=== PATIENT | female | born 1985 | race African-American/Black ===

== ENCOUNTER 2018-02-21 15:00 | Inpatient (IN) | payer OTHER ==
[2018-02-21 19:11] VITALS: BMI 21.3
--- NOTE | 2018-02-21 19:22 | HP ---
Admission ROS [facility] Allergies/Adverse Reactions: Allergies Allergy/AdvReac Type Severity Reaction Status Date / Time ibuprofen [From Motrin] Allergy Severe Itching Verified 02/21/18 20:02 tomato Allergy Severe Itching Verified 02/21/18 20:02 History of Present Illness: pt here requesting rehab for etoh use , reports self- referred to tx , previous use of ETOH until 5 d . ago , at the time drinking 2 pints /day , detox herself and decided to come to rehab . Currently not in out pt program . utox : neg for all on the 2nd utox, first + mtd , denies use , states went to hospital yesterday 2/2 LBP , was given morphine , tylenol and zofran . pmhx : asthma ( er visit , has inhaler ALbuterol ) pshx : nose frx psych : anxiety , depression , ptsd psych : prednisone , Prozac , klonopin i-stop negative - Ebola screening Have you traveled outside of the country in the last 21 days: No Have you had contact with anyone from an Ebola affected area: No Have you been sick,other than usual withdrawal symptoms: No Patient History - Patient Medical History Hx Anemia: Yes (NO CURRENT MED) Hx Asthma: Yes (MDI) Hx Chronic Obstructive Pulmonary Disease (COPD): No Hx Cardiac Disorders: No Hx Hypertension: No Hx Hypercholesterolemia: No HX Cerebrovascular Accident: No Hx Seizures: No Hx Diabetes: No Hx Gastrointestinal Disorders: No Hx Genitourinary Disorders: No Hx Sexually Transmitted Disorders: Yes (chlamydia) Hx Renal Disease (ESRD): No Hx Thyroid Disease: No Hx Human Immunodeficiency Virus (HIV): No (NEGATIVE HX) Hx Hepatitis C: No Hx Depression: Yes (NO CURRENT MED) Hx Suicide Attempt: No (DENIES) Hx Bipolar Disorder: No Hx Schizophrenia: No - Patient Surgical History Past Surgical History: Yes Hx Neurologic Surgery: No Hx Cataract Extraction: No Hx Cardiac Surgery: No Hx Lung Surgery: No Hx Breast Surgery: No Hx Breast Biopsy: No Hx Abdominal Surgery: No Hx Appendectomy: No Hx Cholecystectomy: No Hx Genitourinary Surgery: No Hx Section: No Hx Orthopedic Surgery: No Other Surgical History: fx, nose in 12/2015 Anesthesia Reaction: No - PPD History Date: 03/12/16 Results: TO BE DONE - Reproductive History Last Menstrual Period: 01/31/16 - Smoking Cessation Smoking history: Current every day smoker Have you smoked in the past 12 months: Yes Aproximately how many cigarettes per day: 10 Hx Chewing Tobacco Use: No Initiated information on smoking cessation: No - Substances Abused Alcohol Route: Oral Frequency: Daily Amount used: 1 pint vodka Age of first use: 19 Date of Last Use: 02/16/18 Family Disease History - Family Disease History Family Disease History: Diabetes: Grandparent (STOCH CA-), CA: Grandparent, Other: Father (HTN), Mother (LOW BP) Admission Physical Exam [facility] - Vital Signs Vital Signs: Vital Signs - 24 hr 02/21/18 19:09 Temperature 99.2 F Pulse Rate 94 H Respiratory 20 Rate Blood Pressure 134/91 - Physical General Appearance: Yes: Within Normal Limits, No Apparent Distress, Nourished, Appropriately Dressed, Other (lmp now) HEENTM: Yes: Within Normal Limits, EOMI, Hearing grossly Normal, Normal ENT Inspection, Normocephalic, Normal Voice, LINDA, Pharynx Normal, Other (reading glasses) Respiratory: Yes: Within Normal Limits, Chest Non-Tender, Lungs Clear, Normal Breath Sounds, No Respiratory Distress, No Accessory Muscle Use Neck: Yes: Within Normal Limits, No masses,lesions,Nodules, Trachea in good position Cardiology: Yes: Regular Rhythm, Regular Rate, Tachycardia Abdominal: Yes: Within Normal Limits, Normal Bowel Sounds, Non Tender, Flat, Soft Genitourinary: Yes: Within Normal Limits Back: Yes: Within Normal Limits, Normal Inspection Musculoskeletal: Yes: Within Normal Limits, full range of Motion, Gait Steady, Pelvis Stable Extremities: Yes: Within Normal Limits, Normal Capillary Refill, Normal Inspection, Normal Range of Motion, Non-Tender Neurological: Yes: Fully Oriented, Alert, Motor Strength 5/5, Normal Response, Depressed Affect Integumentary: Yes: Within Normal Limits, Normal Color, Dry, Warm - Diagnostic (1) Alcohol dependence Current Visit: Yes Status: Chronic Qualifiers: Substance use status: uncomplicated Qualified Code(s): F10.20 - Alcohol dependence, uncomplicated S Breath Alcohol Content Breath Alcohol Content: 0 Urine Pregancy Test - Result Urine Test Results: Negative- NO Line Present Urine Drug Screen - Results Drug Screen Negative: No Urine Drug Screen Results: MTD-Methadone
[2018-02-21] MEDS ORDERED: MAGNESIUM HYDROX 2400MG/30ML ORAL SUSPENSION 30 ML CUP PO PRN (19:34)
[2018-02-21] MEDS ORDERED: guaiFENesin/D-METHORPHAN HB 10 ML UNIT-DOSE CUPS PO PRN (19:34)
[2018-02-21] MEDS ORDERED: IBUPROFEN 400 MG TABLET (FP) PO PRN (19:34)
[2018-02-21] MEDS ORDERED: MAG HYDROX/AL HYDROX/SIMETH 30 ML UNIT-DOSE CUP PO PRN (19:34)
[2018-02-21] MEDS ORDERED: MENTHOL/PHENOL 1 EACH UD MM PRN (19:34)
[2018-02-21] MEDS ORDERED: P-EPHED 60MG/TRIPROLIDI 2.5MG TABLET PO PRN (19:34)
[2018-02-21] MEDS ORDERED: MAGNESIUM CITRATE 300 ML BOTTLE PO PRN (19:34)
[2018-02-21] MEDS ORDERED: LOPERAMIDE HCL 2 MG CAPSULE PO PRN (19:34)
[2018-02-21] MEDS ORDERED: ALBUTEROL SO4 0.083% IH SOL 2.5 MG/3 ML VIAL.NEB. NEB PRN (19:35)
[2018-02-21] MEDS ORDERED: MELATONIN 5 MG TABLETS PO PRN (22:00)
[2018-02-21] MEDS ORDERED: TUBERCULIN PPD 5 TU/0.1ML VIAL ID ONE (23:10)
[2018-02-21] MEDS: THIAMINE HCL 100 MG TABLET (FP) PO SCH (23:39)
[2018-02-22] MEDS: ALBUTEROL SO4 8 GM HFA INHALER IH PRN ×2 (07:21→14:24)
[2018-02-22] MEDS ORDERED: PT OWN MED DRAWER 7, Y5N ONE ×3 (08:40→14:23)
[2018-02-22] MEDS: PRENATAL VITAMINS W/ FOLIC ACID TABLET (FP) PO SCH (09:44)
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
[2018-02-22] MEDS: FLUoxetine HCL 20 MG CAPSULE (FP) PO SCH (11:47)
[2018-02-22] MEDS ORDERED: PNEUMOC 13-VAL CONJ-DIP CRM/PF 0.5 ML DISP.SYRIN IM ONE (12:00)
[2018-02-22] MEDS ORDERED: PNEUMOCOCCAL 23 VACCINE 0.5 ML VIAL IM ONE (12:00)
[2018-02-22] MEDS: hydrOXYzine PAMOATE 50 MG CAPSULE (FP) PO PRN ×2 (14:24→21:27)
[2018-02-22 14:47] LABS: HEMATOCRIT 35.2 % (32.4-45.2); MCH 35.5 pg (25.7-33.7); MEAN CELL VOLUME 104.5 fl (80-96); PLATELET COUNT 54 K/MM3 (134-434); RBC 3.37 M/mm3 (3.60-5.2); RDW 19.6 % (11.6-15.6); WHITE BLOOD COUNT 2.9 K/mm3 (4.0-10.0)
[2018-02-22 15:02] LABS: ALBUMIN 4.1 g/dl (3.4-5.0); ALK PHOS 135 U/L (45-117); ANION GAP 9 MMOL/L (8-16); BILIRUBIN,TOTAL 1.2 mg/dL (0.2-1); BLOOD UREA NITROGEN 3 mg/dL (7-18); CALCIUM 9.8 mg/dL (8.5-10.1); CHLORIDE 97 mmol/L (98-107); CO2 29 mmol/L (21-32); CREATININE 0.6 mg/dL (0.55-1.3); GLUCOSE,RANDOM 99 mg/dL (74-106); POTASSIUM 3.3 mmol/L (3.5-5.1); SGOT/AST 205 U/L (15-37); SGPT/ALT 67 U/L (13-61); SODIUM 135 mmol/L (136-145); TOT PROT 7.6 g/dl (6.4-8.2)
[2018-02-22] MEDS: MELATONIN 5 MG TABLETS PO PRN (21:26)
[2018-02-22] MEDS: THIAMINE HCL 100 MG TABLET (FP) PO SCH (21:26)
[2018-02-23] MEDS: PRENATAL VITAMINS W/ FOLIC ACID TABLET (FP) PO SCH (09:30)
[2018-02-23] MEDS: FLUoxetine HCL 20 MG CAPSULE (FP) PO SCH (09:30)
[2018-02-23 10:17] LABS: URINE APPEARANCE SLCLOUDY; URINE BILIRUBIN NEGATIVE (<2.0 mg/dL); URINE COLOR YELLOW; URINE GLUCOSE (UA) NEGATIVE (NEGATIVE); URINE KETONE NEGATIVE (NEGATIVE); URINE LEUK ESTERASE 2+ (NEGATIVE); URINE NITRITE NEGATIVE (NEGATIVE); URINE PROTEIN NEGATIVE (NEGATIVE); URINE UROBILINOGEN NEGATIVE mg/dL (0.2-1.0)
[2018-02-23 10:58] LABS: EPI CELLS FEW /HPF (FEW); URINE BACTERIA RARE /hpf (NONE SEEN); URINE MUCUS RARE
[2018-02-23] MEDS: hydrOXYzine PAMOATE 50 MG CAPSULE (FP) PO PRN ×3 (13:58→21:14)
[2018-02-23] MEDS ORDERED: PT OWN MED DRAWER 7, Y5N ONE (19:18)
[2018-02-23] MEDS: THIAMINE HCL 100 MG TABLET (FP) PO SCH (21:14)
[2018-02-23] MEDS: MELATONIN 5 MG TABLETS PO PRN (21:14)
[2018-02-24] MEDS: hydrOXYzine PAMOATE 50 MG CAPSULE (FP) PO PRN (08:49)
[2018-02-24] MEDS ORDERED: POTASSIUM CHLORIDE TABS 20 MEQ TABLET.ER (FP) PO ONE (09:31)
--- NOTE | 2018-02-24 09:36 | PN ---
[facility] Progress Note Note: PT ADMITTED ON 02/21/18 TO REHAB. Laboratory Tests 02/22/18 02/22/18 02/22/18 09:35 09:35 09:35 WBC 2.9 L RBC 3.37 L Hgb 12.0 Hct 35.2 MCV 104.5 H MCH 35.5 H MCHC 34.0 RDW 19.6 H Plt Count 54 L D MPV 11.0 D Sodium 135 L Potassium 3.3 L Chloride 97 L Carbon Dioxide 29 Anion Gap 9 BUN 3 L Creatinine 0.6 Creat Clearance w eGFR > 60 Random Glucose 99 Calcium 9.8 Total Bilirubin 1.2 H AST 205 H ALT 67 H Alkaline Phosphatase 135 H Total Protein 7.6 Albumin 4.1 Urine Color Urine Appearance Urine pH Ur Specific [place] Urine Protein Urine Glucose (UA) Urine Ketones Urine Blood Urine Nitrite Urine Bilirubin Urine Urobilinogen Ur Leukocyte Esterase Urine WBC (Auto) Urine RBC (Auto) Ur Epithelial Cells Urine Bacteria Urine Mucus RPR Titer Nonreactive 02/23/18 07:00 WBC RBC Hgb Hct MCV MCH MCHC RDW Plt Count MPV Sodium Potassium Chloride Carbon Dioxide Anion Gap BUN Creatinine Creat Clearance w eGFR Random Glucose Calcium Total Bilirubin AST ALT Alkaline Phosphatase Total Protein Albumin Urine Color Yellow Urine Appearance Slcloudy Urine pH 6.0 Ur Specific [place] 1.012 Urine Protein Negative Urine Glucose (UA) Negative Urine Ketones Negative Urine Blood 3+ H Urine Nitrite Negative Urine Bilirubin Negative Urine Urobilinogen Negative Ur Leukocyte Esterase 2+ H Urine WBC (Auto) 27 Urine RBC (Auto) 1 Ur Epithelial Cells Few Urine Bacteria Rare Urine Mucus Rare RPR Titer LABS NOTED. K+ = 3.3 PLT 54 ELEVATED LIVER ENZYMES UA NOTED PT REPORTS HX OF HYPOKALEMIA WITH PREVIOUS TX . PT REPORTS SHE IS CURRENTLY ON HER PERIOD. PLAN;KDUR 20 MEQ PO BID REPEAT CBC AND CMP ON 02/27/18
[2018-02-24] MEDS: FLUoxetine HCL 20 MG CAPSULE (FP) PO SCH (09:49)
[2018-02-24] MEDS: PRENATAL VITAMINS W/ FOLIC ACID TABLET (FP) PO SCH (09:49)
[2018-02-24] MEDS: POTASSIUM CHLORIDE TABS 20 MEQ TABLET.ER (FP) PO SCH ×2 (10:15→21:17)
--- NOTE | 2018-02-24 16:32 | PN ---
Psychiatric Progress Note Vital Signs: Vital Signs Period Temp Pulse Resp BP Sys/Campos Pulse Ox Last 24 Hr 98.3 F 80 16-16 122/77 Date of Session: 02/24/18 Chief Complaint:: Rl not sleeping." HPI: Patient addressed Alcohol dependenc3 comorbid with alcohol induced mood disorder. ROS: Significant for anemia. Current Medications: Active Medications Generic Name Dose Route Start Last Admin Trade Name Freq PRN Reason Stop Dose Admin Acetaminophen 650 mg 02/21/18 19:34 Tylenol - PO Q4H PRN FEVER Al Hydroxide/Mg Hydroxide 30 ml 02/21/18 19:34 Mylanta Oral Suspension - PO Q6H PRN DYSPEPSIA Albuterol Sulfate 1 amp 02/21/18 19:35 Ventolin 0.083% Nebulizer Soln - NEB Q4H PRN SHORT OF BREATH/WHEEZING Albuterol Sulfate 2 puff 02/21/18 19:35 02/22/18 14:24 Ventolin Hfa Inhaler - IH 2 inhaler Q4H PRN Administration ASTHMA Eucalyptus/Menthol/Phenol/Sorbitol 1 each 02/21/18 19:34 Cepastat Lozenge - MM Q4H PRN SORE THROAT Fluoxetine HCl 20 mg 02/22/18 11:15 02/24/18 09:49 Prozac - PO 20 mg DAILY FABY Administration Guaifenesin 10 ml 02/21/18 19:34 Robitussin Dm - PO Q6H PRN COUGH Hydrocortisone 1 applic 02/22/18 13:32 Hytone 1% Ointment - TP DAILY PRN FOR ITCHING Hydroxyzine Pamoate 50 mg 02/22/18 11:11 02/24/18 08:49 Vistaril - PO 50 mg Q4H PRN Administration ANXIETY Ibuprofen 400 mg 02/21/18 19:34 Motrin - PO Q6H PRN Pain level 4-6 Loperamide HCl 4 mg 02/21/18 19:34 Imodium - PO Q6H PRN DIARRHEA Magnesium Citrate 300 ml 02/21/18 19:34 Citroma - PO Q48H PRN CONSTIPATION Magnesium Hydroxide 30 ml 02/21/18 19:34 Milk Of Magnesia - PO DAILY PRN CONSTIPATION Melatonin 10 mg 02/22/18 11:12 02/23/18 21:14 Melatonin PO 10 mg HS PRN Administration INSOMNIA Potassium Chloride 20 meq 10/12/18 10:00 02/24/18 10:15 K-Dur - PO 20 meq BID FABY Administration Multivit/Folic Acid/Iron 1 tab 02/22/18 10:00 02/24/18 09:49 Vitamins (Sjr) - PO 1 tab DAILY FABY Administration Pseudoephedrine/Triprolidine 1 combo 02/21/18 19:34 Actifed - PO TID PRN NASAL CONGESTION Thiamine HCl 100 mg 02/21/18 22:00 02/23/18 21:14 Vitamin B1 - PO 100 mg HS FABY Administration Current Side Effect: No Lab tests ordered: No Lab tests reviewed: Yes Provider note:: Chart was revuewed,met with the patient .Treatment plan, medications management has been discussed with the patient.She adressed ongoing sleeping difficulties and anxiety as a result of lack of sleep.porperties of Trazodone has been discussed with the patient including side effects,benefits and dose adjustemtn.Patient agrees to start Trazodone 50 mg po hs. supportive therapy provided. Total face to face time:: 25 Mental Status Exam - Mental Status Exam Alert and Oriented to: Time, Place, Person Cognitive Function: Grossly Intact Patient Appearance: Well Groomed Mood: Anxious Affect: Mood Congruent, Labile Patient Behavior: Cooperative Speech Pattern: Clear Voice Loudness: Normal Thought Process: Goal Oriented Thought Disorder: Not Present Hallucinations: Denies Suicidal Ideation: Denies Homicidal Ideation: Denies Insight/Judgement: Fair Sleep: Difficulty falling asleep Appetite: Good Muscle strength/Tone: Normal Gait/Station: Normal Psychiatric Treatment Plan - Problem List (1) Alcohol dependence Current Visit: Yes Qualifiers: Substance use status: uncomplicated Qualified Code(s): F10.20 - Alcohol dependence, uncomplicated (2) Alcohol induced insomnia Current Visit: Yes (3) Nicotine dependence Current Visit: Yes (4) History of anemia Current Visit: Yes (5) Alcohol-induced mood disorder Current Visit: Yes
[2018-02-24] MEDS: THIAMINE HCL 100 MG TABLET (FP) PO SCH (21:17)
[2018-02-24] MEDS: MELATONIN 5 MG TABLETS PO PRN (21:17)
[2018-02-24] MEDS: traZODone HCL 50 MG TABLET (FP) PO SCH (21:17)
[2018-02-25] MEDS ORDERED: PT OWN MED DRAWER 7, Y5N ONE ×2 (08:49→21:07)
[2018-02-25] MEDS: PRENATAL VITAMINS W/ FOLIC ACID TABLET (FP) PO SCH (09:47)
[2018-02-25] MEDS: FLUoxetine HCL 20 MG CAPSULE (FP) PO SCH (09:47)
[2018-02-25] MEDS: ACETAMINOPHEN 325 MG TABLET (FP) PO PRN (09:48)
[2018-02-25] MEDS: hydrOXYzine PAMOATE 50 MG CAPSULE (FP) PO PRN ×2 (09:48→19:13)
[2018-02-25] MEDS: POTASSIUM CHLORIDE TABS 20 MEQ TABLET.ER (FP) PO SCH ×2 (09:48→21:18)
[2018-02-25] MEDS: traZODone HCL 50 MG TABLET (FP) PO SCH (21:18)
[2018-02-25] MEDS: MELATONIN 5 MG TABLETS PO PRN (21:18)
[2018-02-25] MEDS: THIAMINE HCL 100 MG TABLET (FP) PO SCH (21:18)
[2018-02-26] MEDS: FLUoxetine HCL 20 MG CAPSULE (FP) PO SCH (09:31)
[2018-02-26] MEDS: PRENATAL VITAMINS W/ FOLIC ACID TABLET (FP) PO SCH (09:31)
[2018-02-26] MEDS: POTASSIUM CHLORIDE TABS 20 MEQ TABLET.ER (FP) PO SCH ×2 (09:31→21:16)
[2018-02-26] MEDS: hydrOXYzine PAMOATE 50 MG CAPSULE (FP) PO PRN ×2 (09:31→20:02)
[2018-02-26] MEDS: HYDROCORTISONE 1% TOPICAL OINT 30 GM TUBE TP PRN (09:32)
[2018-02-26] MEDS: ACETAMINOPHEN 325 MG TABLET (FP) PO PRN (14:51)
[2018-02-26] MEDS: THIAMINE HCL 100 MG TABLET (FP) PO SCH (21:16)
[2018-02-26] MEDS: traZODone HCL 50 MG TABLET (FP) PO SCH (21:16)
[2018-02-26] MEDS: MELATONIN 5 MG TABLETS PO PRN (21:17)
[2018-02-27] MEDS: hydrOXYzine PAMOATE 50 MG CAPSULE (FP) PO PRN ×2 (08:47→18:37)
[2018-02-27] MEDS: POTASSIUM CHLORIDE TABS 20 MEQ TABLET.ER (FP) PO SCH (09:23)
[2018-02-27] MEDS: FLUoxetine HCL 20 MG CAPSULE (FP) PO SCH (09:23)
[2018-02-27] MEDS: PRENATAL VITAMINS W/ FOLIC ACID TABLET (FP) PO SCH (09:23)
[2018-02-27] MEDS: ACETAMINOPHEN 325 MG TABLET (FP) PO PRN (09:24)
[2018-02-27 15:16] LABS: EOS % 3.5 % (0-4.5); HEMATOCRIT 35.1 % (32.4-45.2); HEMOGLOBIN 11.7 GM/dL (10.7-15.3); LYMPH % 33.3 % (8-40); MCHC 33.4 g/dl (32.0-36.0); MEAN CELL VOLUME 107.7 fl (80-96); MEAN PLT VOLUME 9.9 fl (7.5-11.1); MONO % 24.8 % (3.8-10.2); NEUT % 37.4 % (42.8-82.8); PLATELET COUNT 217 K/MM3 (134-434); RBC 3.26 M/mm3 (3.60-5.2); RDW 19.3 % (11.6-15.6); WHITE BLOOD COUNT 3.3 K/mm3 (4.0-10.0)
[2018-02-27 15:26] LABS: ALBUMIN 3.6 g/dl (3.4-5.0); ALK PHOS 101 U/L (45-117); ANION GAP 6 MMOL/L (8-16); BILIRUBIN,TOTAL 0.4 mg/dL (0.2-1); BLOOD UREA NITROGEN 7 mg/dL (7-18); CALCIUM 9.2 mg/dL (8.5-10.1); CHLORIDE 99 mmol/L (98-107); CO2 32 mmol/L (21-32); CREATININE 0.5 mg/dL (0.55-1.3); GLUCOSE,RANDOM 117 mg/dL (74-106); POTASSIUM 4.5 mmol/L (3.5-5.1); SGOT/AST 56 U/L (15-37); SGPT/ALT 67 U/L (13-61); SODIUM 136 mmol/L (136-145)
--- NOTE | 2018-02-27 15:36 | PN ---
[facility] Progress Note Note: CALL FROM NURSE JOSE ON PT'S REPEAT LAB RESULTS. Laboratory Tests 02/22/18 02/22/18 02/22/18 09:35 09:35 09:35 WBC 2.9 L RBC 3.37 L Hgb 12.0 Hct 35.2 MCV 104.5 H MCH 35.5 H MCHC 34.0 RDW 19.6 H Plt Count 54 L D MPV 11.0 D Absolute Neuts (auto) Neutrophils % Lymphocytes % Monocytes % Eosinophils % Basophils % Nucleated RBC % Sodium 135 L Potassium 3.3 L Chloride 97 L Carbon Dioxide 29 Anion Gap 9 BUN 3 L Creatinine 0.6 Creat Clearance w eGFR > 60 Random Glucose 99 Calcium 9.8 Total Bilirubin 1.2 H AST 205 H ALT 67 H Alkaline Phosphatase 135 H Total Protein 7.6 Albumin 4.1 Urine Color Urine Appearance Urine pH Ur Specific [place] Urine Protein Urine Glucose (UA) Urine Ketones Urine Blood Urine Nitrite Urine Bilirubin Urine Urobilinogen Ur Leukocyte Esterase Urine WBC (Auto) Urine RBC (Auto) Ur Epithelial Cells Urine Bacteria Urine Mucus RPR Titer Nonreactive 02/23/18 02/27/18 02/27/18 07:00 08:55 08:55 WBC 3.3 L RBC 3.26 L Hgb 11.7 Hct 35.1 MCV 107.7 H MCH 36.0 H MCHC 33.4 RDW 19.3 H Plt Count 217 D MPV 9.9 Absolute Neuts (auto) 1.2 L Neutrophils % 37.4 L D Lymphocytes % 33.3 D Monocytes % 24.8 H D Eosinophils % 3.5 D Basophils % 1.0 Nucleated RBC % 0 Sodium 136 Potassium 4.5 Chloride 99 Carbon Dioxide 32 Anion Gap 6 L BUN 7 Creatinine 0.5 L Creat Clearance w eGFR > 60 Random Glucose 117 H Calcium 9.2 Total Bilirubin 0.4 AST 56 H ALT 67 H Alkaline Phosphatase 101 Total Protein 7.0 Albumin 3.6 Urine Color Yellow Urine Appearance Slcloudy Urine pH 6.0 Ur Specific [place] 1.012 Urine Protein Negative Urine Glucose (UA) Negative Urine Ketones Negative Urine Blood 3+ H Urine Nitrite Negative Urine Bilirubin Negative Urine Urobilinogen Negative Ur Leukocyte Esterase 2+ H Urine WBC (Auto) 27 Urine RBC (Auto) 1 Ur Epithelial Cells Few Urine Bacteria Rare Urine Mucus Rare RPR Titer K+ =4.5 CORRECTED D/C KDUR. OTHER LABS MOSTLY IMPROVED MONITOR PT
[2018-02-27 17:25] LABS: ANISOCYTOSIS 1+; PLATELET ESTIMATE ADEQUATE
[2018-02-27] MEDS: traZODone HCL 50 MG TABLET (FP) PO SCH (21:21)
[2018-02-27] MEDS: THIAMINE HCL 100 MG TABLET (FP) PO SCH (21:21)
[2018-02-27] MEDS: MELATONIN 5 MG TABLETS PO PRN (21:21)
[2018-02-28] MEDS: hydrOXYzine PAMOATE 50 MG CAPSULE (FP) PO PRN ×2 (08:33→17:48)
[2018-02-28] MEDS: FLUoxetine HCL 20 MG CAPSULE (FP) PO SCH (09:22)
[2018-02-28] MEDS: PRENATAL VITAMINS W/ FOLIC ACID TABLET (FP) PO SCH (09:22)
[2018-02-28] MEDS ORDERED: PT OWN MED DRAWER 7, Y5N ONE (09:31)
[2018-02-28] MEDS: traZODone HCL 50 MG TABLET (FP) PO SCH (21:06)
[2018-02-28] MEDS: MELATONIN 5 MG TABLETS PO PRN (21:06)
[2018-02-28] MEDS: THIAMINE HCL 100 MG TABLET (FP) PO SCH (21:06)
[2018-03-01] MEDS ORDERED: PT OWN MED DRAWER 7, Y5N ONE (08:25)
[2018-03-01] MEDS: hydrOXYzine PAMOATE 50 MG CAPSULE (FP) PO PRN ×3 (08:47→19:10)
[2018-03-01] MEDS: PRENATAL VITAMINS W/ FOLIC ACID TABLET (FP) PO SCH (09:27)
[2018-03-01] MEDS: FLUoxetine HCL 20 MG CAPSULE (FP) PO SCH (09:27)
[2018-03-01] MEDS: THIAMINE HCL 100 MG TABLET (FP) PO SCH (21:12)
[2018-03-01] MEDS: MELATONIN 5 MG TABLETS PO PRN (21:12)
[2018-03-01] MEDS: traZODone HCL 50 MG TABLET (FP) PO SCH (21:12)
[2018-03-02] MEDS: hydrOXYzine PAMOATE 50 MG CAPSULE (FP) PO PRN ×3 (08:50→18:57)
[2018-03-02] MEDS: PRENATAL VITAMINS W/ FOLIC ACID TABLET (FP) PO SCH (09:47)
[2018-03-02] MEDS: FLUoxetine HCL 20 MG CAPSULE (FP) PO SCH (09:47)
[2018-03-02] MEDS: THIAMINE HCL 100 MG TABLET (FP) PO SCH (21:09)
[2018-03-02] MEDS: MELATONIN 5 MG TABLETS PO PRN (21:09)
[2018-03-02] MEDS: traZODone HCL 50 MG TABLET (FP) PO SCH (21:09)
[2018-03-03] MEDS: PRENATAL VITAMINS W/ FOLIC ACID TABLET (FP) PO SCH (09:46)
[2018-03-03] MEDS: hydrOXYzine PAMOATE 50 MG CAPSULE (FP) PO PRN ×3 (09:46→21:07)
[2018-03-03] MEDS: FLUoxetine HCL 20 MG CAPSULE (FP) PO SCH (09:46)
[2018-03-03] MEDS: MELATONIN 5 MG TABLETS PO PRN (21:07)
[2018-03-03] MEDS: traZODone HCL 50 MG TABLET (FP) PO SCH (21:07)
[2018-03-03] MEDS: THIAMINE HCL 100 MG TABLET (FP) PO SCH (21:07)
[2018-03-04] MEDS: FLUoxetine HCL 20 MG CAPSULE (FP) PO SCH (09:35)
[2018-03-04] MEDS: PRENATAL VITAMINS W/ FOLIC ACID TABLET (FP) PO SCH (09:35)
[2018-03-04] MEDS: hydrOXYzine PAMOATE 50 MG CAPSULE (FP) PO PRN ×3 (09:35→20:06)
[2018-03-04] MEDS: traZODone HCL 50 MG TABLET (FP) PO SCH (21:20)
[2018-03-04] MEDS: THIAMINE HCL 100 MG TABLET (FP) PO SCH (21:21)
[2018-03-04] MEDS: MELATONIN 5 MG TABLETS PO PRN (21:21)
[2018-03-05] MEDS: PRENATAL VITAMINS W/ FOLIC ACID TABLET (FP) PO SCH (09:42)
[2018-03-05] MEDS: FLUoxetine HCL 20 MG CAPSULE (FP) PO SCH (09:42)
[2018-03-05] MEDS: hydrOXYzine PAMOATE 50 MG CAPSULE (FP) PO PRN ×3 (09:43→19:40)
[2018-03-05] MEDS ORDERED: PT OWN MED DRAWER 7, Y5N ONE (10:48)
[2018-03-05] MEDS: MELATONIN 5 MG TABLETS PO PRN (21:16)
[2018-03-05] MEDS: traZODone HCL 50 MG TABLET (FP) PO SCH (21:16)
[2018-03-05] MEDS: THIAMINE HCL 100 MG TABLET (FP) PO SCH (21:16)
[2018-03-06] MEDS ORDERED: PT OWN MED DRAWER 7, Y5N ONE (08:23)
[2018-03-06] MEDS: PRENATAL VITAMINS W/ FOLIC ACID TABLET (FP) PO SCH (09:30)
[2018-03-06] MEDS: FLUoxetine HCL 20 MG CAPSULE (FP) PO SCH (09:30)
[2018-03-06] MEDS: hydrOXYzine PAMOATE 50 MG CAPSULE (FP) PO PRN ×2 (09:30→14:58)
[2018-03-06] MEDS: ACETAMINOPHEN 325 MG TABLET (FP) PO PRN (12:41)
[2018-03-06] MEDS: THIAMINE HCL 100 MG TABLET (FP) PO SCH (21:26)
[2018-03-06] MEDS: traZODone HCL 50 MG TABLET (FP) PO SCH (21:28)
[2018-03-06] MEDS: MELATONIN 5 MG TABLETS PO PRN (21:28)
[2018-03-07] MEDS: hydrOXYzine PAMOATE 50 MG CAPSULE (FP) PO PRN ×2 (09:19→21:16)
[2018-03-07] MEDS: FLUoxetine HCL 20 MG CAPSULE (FP) PO SCH (09:19)
[2018-03-07] MEDS: PRENATAL VITAMINS W/ FOLIC ACID TABLET (FP) PO SCH (09:19)
[2018-03-07] MEDS: MELATONIN 5 MG TABLETS PO PRN (21:16)
[2018-03-07] MEDS: traZODone HCL 50 MG TABLET (FP) PO SCH (21:16)
[2018-03-07] MEDS: THIAMINE HCL 100 MG TABLET (FP) PO SCH (21:16)
[2018-03-07] MEDS: CYCLOBENZAPRINE HCL 10 MG TABLET (FP) PO SCH (21:17)
[2018-03-08] MEDS: CYCLOBENZAPRINE HCL 10 MG TABLET (FP) PO SCH ×3 (06:25→21:24)
[2018-03-08] MEDS: ACETAMINOPHEN 325 MG TABLET (FP) PO PRN (08:39)
[2018-03-08] MEDS: FLUoxetine HCL 20 MG CAPSULE (FP) PO SCH (09:52)
[2018-03-08] MEDS: PRENATAL VITAMINS W/ FOLIC ACID TABLET (FP) PO SCH (09:52)
[2018-03-08] MEDS: hydrOXYzine PAMOATE 50 MG CAPSULE (FP) PO PRN ×2 (09:53→21:24)
[2018-03-08] MEDS ORDERED: PT OWN MED DRAWER 7, Y5N ONE (19:35)
[2018-03-08] MEDS: THIAMINE HCL 100 MG TABLET (FP) PO SCH (21:24)
[2018-03-08] MEDS: traZODone HCL 50 MG TABLET (FP) PO SCH (21:24)
[2018-03-08] MEDS: MELATONIN 5 MG TABLETS PO PRN (21:25)
[2018-03-09] MEDS: CYCLOBENZAPRINE HCL 10 MG TABLET (FP) PO SCH ×3 (06:11→21:44)
[2018-03-09] MEDS: PRENATAL VITAMINS W/ FOLIC ACID TABLET (FP) PO SCH (10:00)
[2018-03-09] MEDS: FLUoxetine HCL 20 MG CAPSULE (FP) PO SCH (10:01)
[2018-03-09] MEDS ORDERED: PT OWN MED DRAWER 7, Y5N ONE ×2 (10:01→21:07)
[2018-03-09] MEDS: HYDROCORTISONE 1% TOPICAL OINT 30 GM TUBE TP PRN (10:02)
[2018-03-09] MEDS: hydrOXYzine PAMOATE 50 MG CAPSULE (FP) PO PRN ×2 (10:03→18:53)
[2018-03-09] MEDS: MELATONIN 5 MG TABLETS PO PRN (21:44)
[2018-03-09] MEDS: THIAMINE HCL 100 MG TABLET (FP) PO SCH (21:44)
[2018-03-09] MEDS: traZODone HCL 50 MG TABLET (FP) PO SCH (21:44)
[2018-03-10] MEDS: CYCLOBENZAPRINE HCL 10 MG TABLET (FP) PO SCH ×3 (06:54→21:25)
[2018-03-10] MEDS: PRENATAL VITAMINS W/ FOLIC ACID TABLET (FP) PO SCH (09:42)
[2018-03-10] MEDS: FLUoxetine HCL 20 MG CAPSULE (FP) PO SCH (09:42)
[2018-03-10] MEDS: hydrOXYzine PAMOATE 50 MG CAPSULE (FP) PO PRN ×3 (09:43→21:28)
[2018-03-10] MEDS ORDERED: PT OWN MED DRAWER 7, Y5N ONE (14:28)
[2018-03-10] MEDS: traZODone HCL 50 MG TABLET (FP) PO SCH (21:26)
[2018-03-10] MEDS: THIAMINE HCL 100 MG TABLET (FP) PO SCH (21:26)
[2018-03-10] MEDS: MELATONIN 5 MG TABLETS PO PRN (21:27)
[2018-03-11] MEDS: CYCLOBENZAPRINE HCL 10 MG TABLET (FP) PO SCH ×3 (06:57→21:28)
[2018-03-11] MEDS: hydrOXYzine PAMOATE 50 MG CAPSULE (FP) PO PRN ×3 (06:58→21:30)
[2018-03-11] MEDS: PRENATAL VITAMINS W/ FOLIC ACID TABLET (FP) PO SCH (09:37)
[2018-03-11] MEDS: FLUoxetine HCL 20 MG CAPSULE (FP) PO SCH (09:37)
[2018-03-11] MEDS: MELATONIN 5 MG TABLETS PO PRN (21:28)
[2018-03-11] MEDS: THIAMINE HCL 100 MG TABLET (FP) PO SCH (21:28)
[2018-03-11] MEDS: traZODone HCL 50 MG TABLET (FP) PO SCH (21:28)
[2018-03-12] MEDS: CYCLOBENZAPRINE HCL 10 MG TABLET (FP) PO SCH ×3 (06:15→21:24)
[2018-03-12] MEDS: hydrOXYzine PAMOATE 50 MG CAPSULE (FP) PO PRN ×2 (08:00→21:24)
[2018-03-12] MEDS: FLUoxetine HCL 20 MG CAPSULE (FP) PO SCH (09:57)
[2018-03-12] MEDS: PRENATAL VITAMINS W/ FOLIC ACID TABLET (FP) PO SCH (09:57)
[2018-03-12] MEDS: traZODone HCL 50 MG TABLET (FP) PO SCH (21:24)
[2018-03-12] MEDS: THIAMINE HCL 100 MG TABLET (FP) PO SCH (21:25)
[2018-03-12] MEDS: MELATONIN 5 MG TABLETS PO PRN (21:25)
[2018-03-13] MEDS: CYCLOBENZAPRINE HCL 10 MG TABLET (FP) PO SCH ×3 (06:30→21:20)
[2018-03-13] MEDS: hydrOXYzine PAMOATE 50 MG CAPSULE (FP) PO PRN ×3 (06:31→21:20)
[2018-03-13] MEDS: PRENATAL VITAMINS W/ FOLIC ACID TABLET (FP) PO SCH (09:52)
[2018-03-13] MEDS: FLUoxetine HCL 20 MG CAPSULE (FP) PO SCH (09:52)
--- NOTE | 2018-03-13 14:29 | PN ---
Psychiatric Progress Note Vital Signs: Vital Signs Period Temp Pulse Resp BP Sys/Campos Pulse Ox Last 24 Hr 98.4 F 83 16-17 134/76 Date of Session: 03/13/18 Chief Complaint:: Discharge Note HPI: Patient addressing Alcohol Dependence comorbid with Nicotine Dependence, Alcohol-Induced Mood Disorder and Alcohol-Induced Sleep Disorder ROS: Anemia, Asthma were medically Current Medications: Active Medications Generic Name Dose Route Start Last Admin Trade Name Freq PRN Reason Stop Dose Admin Acetaminophen 650 mg 02/21/18 19:34 03/08/18 08:39 Tylenol - PO 650 mg Q4H PRN Administration FEVER Al Hydroxide/Mg Hydroxide 30 ml 02/21/18 19:34 Mylanta Oral Suspension - PO Q6H PRN DYSPEPSIA Albuterol Sulfate 2 puff 02/21/18 19:35 02/22/18 14:24 Ventolin Hfa Inhaler - IH 2 inhaler Q4H PRN Administration ASTHMA Cyclobenzaprine HCl 10 mg 03/07/18 22:00 03/13/18 13:58 Flexeril - PO 10 mg TID FABY Administration Eucalyptus/Menthol/Phenol/Sorbitol 1 each 02/21/18 19:34 Cepastat Lozenge - MM Q4H PRN SORE THROAT Fluoxetine HCl 20 mg 02/22/18 11:15 03/13/18 09:52 Prozac - PO 20 mg DAILY FABY Administration Guaifenesin 10 ml 02/21/18 19:34 Robitussin Dm - PO Q6H PRN COUGH Hydrocortisone 1 applic 02/22/18 13:32 03/09/18 10:02 Hytone 1% Ointment - TP 1 applic DAILY PRN Administration FOR ITCHING Hydroxyzine Pamoate 50 mg 02/22/18 11:11 03/13/18 13:59 Vistaril - PO 50 mg Q4H PRN Administration ANXIETY Loperamide HCl 4 mg 02/21/18 19:34 Imodium - PO Q6H PRN DIARRHEA Magnesium Citrate 300 ml 02/21/18 19:34 Citroma - PO Q48H PRN CONSTIPATION Magnesium Hydroxide 30 ml 02/21/18 19:34 Milk Of Magnesia - PO DAILY PRN CONSTIPATION Melatonin 10 mg 02/22/18 11:12 03/12/18 21:25 Melatonin PO 10 mg HS PRN Administration INSOMNIA Multivit/Folic Acid/Iron 1 tab 02/22/18 10:00 03/13/18 09:52 Vitamins (Sjr) - PO 1 tab DAILY FABY Administration Pseudoephedrine/Triprolidine 1 combo 02/21/18 19:34 02/26/18 08:53 Actifed - PO 1 combo TID PRN Administration NASAL CONGESTION Thiamine HCl 100 mg 02/21/18 22:00 03/12/18 21:25 Vitamin B1 - PO 100 mg HS FABY Administration Trazodone HCl 50 mg 02/24/18 22:00 03/12/18 21:24 Desyrel - PO 50 mg HS FABY Administration Current Side Effect: No Lab tests ordered: Yes Lab tests reviewed: Yes Provider note:: Patient will complete this program on 03/14/18. 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 Told designer writer that from her participation in this program, she has learned about the 12 Steps as well as coping skills. She responded well to Prozac 20 mg po daily and Trazadone 50 mg po HS. Scripts for 30 days supply of these medications will be electronically transmitted to [facility] at [address] [place] [address]. She is stable for discharged on 03/14/18 Total face to face time:: 35 Mental Status Exam - Mental Status Exam Alert and Oriented to: Time, Place, Person Cognitive Function: Fair Patient Appearance: Well Groomed Mood: Hopeful, Euthymic Affect: Appropriate Patient Behavior: Cooperative Speech Pattern: Clear Voice Loudness: Normal Thought Process: Intact Thought Disorder: Not Present Hallucinations: Denies Suicidal Ideation: Denies Homicidal Ideation: Denies Insight/Judgement: Fair Sleep: Fair Appetite: Good Muscle strength/Tone: Normal Gait/Station: Normal Psychiatric Treatment Plan - Problem List (1) Alcohol-induced mood disorder Current Visit: Yes (2) Alcohol dependence Current Visit: Yes Qualifiers: Substance use status: uncomplicated Qualified Code(s): F10.20 - Alcohol dependence, uncomplicated (3) Nicotine dependence Current Visit: Yes (4) Alcohol induced insomnia Current Visit: Yes (5) History of anemia Current Visit: Yes (6) Asthma Current Visit: Yes Initial treatment plan: Patient will be discharged tomorrow and referred to [facility] for intermodal truck driver residential treatment
[2018-03-13] MEDS: THIAMINE HCL 100 MG TABLET (FP) PO SCH (21:20)
[2018-03-13] MEDS: traZODone HCL 50 MG TABLET (FP) PO SCH (21:20)
[2018-03-13] MEDS: MELATONIN 5 MG TABLETS PO PRN (21:20)
[2018-03-14] MEDS: CYCLOBENZAPRINE HCL 10 MG TABLET (FP) PO SCH (06:23)
[2018-03-14 07:02] VITALS: BP 112/77; PULSE 79; TEMP 98.9
[2018-03-14] MEDS: HYDROCORTISONE 1% TOPICAL OINT 30 GM TUBE TP PRN (09:07)
[2018-03-14] MEDS: FLUoxetine HCL 20 MG CAPSULE (FP) PO SCH (09:07)
[2018-03-14] MEDS: PRENATAL VITAMINS W/ FOLIC ACID TABLET (FP) PO SCH (09:07)
== END 2018-03-14 10:05 | disposition home or self-care (01) | DRG 772 ==
LOC: YASAS 15:00 → Y3E 20:06
PROVIDERS: ADMIT Psychiatry & Neurology Psychiatry; ATTEND Psychiatry & Neurology Psychiatry
PROC: HZ42ZZZ Group Counseling for Substance Abuse Treatment, Cognitive-Behavioral (ICD-10-PCS; principal; 2018-02-21)
DX: F10.20 Alcohol dependence, uncomplicated (principal); F17.210 Nicotine dependence, cigarettes, uncomplicated; F10.24 Alcohol dependence with alcohol-induced mood disorder; F10.282 Alcohol dependence with alcohol-induced sleep disorder; E87.6 Hypokalemia; J45.909 Unspecified asthma, uncomplicated; Z86.2 Personal history of diseases of the blood and blood-forming organs and certain disorders involving the immune mechanism
CPT/HCPCS: 36415; 80053; 81003; 81015; 85025; 85027; 86593; 90732; G0009